=== PATIENT | female | born 1980 | race African-American/Black ===

== ENCOUNTER 2016-03-15 11:43 | Emergency (ER) | payer SELFPAY ==
[~2016-03-15] VITALS: Ht 170.2 cm; Wt 90.0 kg
[~2016-03-15 11:43] MED LIST: ULTRAM50 MG PO; ZANTAC150 MG PO
[2016-03-15 18:02] LABS: INFLUENZA A VIRAL ANTIGEN NEGATIVE; INFLUENZA B VIRAL ANTIGEN NEGATIVE
[2016-03-15] MEDS ORDERED: MEDROL DOSEPAK4 MG PO (19:09)
[2016-03-15] MEDS ORDERED: ROBITUSSIN AC,T10 ML PO (19:09)
[2016-03-15] MEDS ORDERED: SUDAFED 12-HOU120 MG PO (19:09)
[2016-03-15] MEDS ORDERED: ZITHROMAX500 MG PO (19:09)
[2016-03-15 19:30] VITALS: BP 126/68
== END 2016-03-15 19:40 | disposition home or self-care (01) ==
LOC: EME 11:43
PROVIDERS: Emergency Medicine
DX: J06.9 Acute upper respiratory infection, unspecified (principal); J32.9 Chronic sinusitis, unspecified
CPT/HCPCS: 71020; 87502; 99281; 99284; J1885; J7512